=== PATIENT | male | born 1980 | race Caucasian/White ===

== ENCOUNTER 2024-11-18 19:56 | Emergency (ER) | payer SELFPAY ==
[2024-11-18] MEDS: Ketorolac 30 MG/ML SDV IM ONE (20:26)
== END 2024-11-19 00:18 | disposition home or self-care (01) ==
LOC: MW.ED 19:56
DX: S82.142A Displaced bicondylar fracture of left tibia, initial encounter for closed fracture (principal); S83.92XA Sprain of unspecified site of left knee, initial encounter; Z79.899 Other long term (current) drug therapy; Y04.0XXA Assault by unarmed brawl or fight, initial encounter
CPT/HCPCS: 73562-26-LT; 73562-LT; 73700-26-LT; 73700-LT; 99282; 99284

== ENCOUNTER 2024-11-28 15:26 | Emergency (ER) | payer SELFPAY | END 2024-11-28 16:19 | disposition home or self-care (01) | LOC: MW.ED 15:26 | DX: R20.2 Paresthesia of skin (principal) | CPT/HCPCS: 99282; 99283 ==